=== PATIENT | female | born 1975 | race Caucasian/White ===

== ENCOUNTER 2021-01-24 17:12 | Emergency (ER) | payer MEDICAID, SELFPAY ==
[2021-01-24 17:15] VITALS: BP 127/74; PULSE 117; RESP 18; TEMP 36.7; O2SAT 98; BMI 37.4
--- NOTE | 2021-01-24 18:12 | ED_ITS ---
HPI - Female Genitourinary General Chief complaint: Urogenital-Female Stated complaint: UTI Source: patient Mode of arrival: ambulatory Limitations: no limitations History of Present Illness HPI Narrative: 45-year-old female presents with urinary symptoms requesting treatment for STI. MD elicited complaint: dysuria, UTI and vaginal discharge Pertinent past history: recurrent UTIs Onset (ago): day(s) ( For) Location of symptoms: external genitalia and vaginal Severity: moderate Severity scale (1-10): 5 Quality of pain: burning Vaginal discharge: white and thick/cheesy Vaginal bleeding: none Urinary symptoms: Dysuria Exacerbating factors: urination and intercourse Relieving factors: none Associated symptoms: denies other symptoms Treatment prior to arrival: none Sexual activity: Yes Patient : No Related Data Previous Rx's Medication Instructions Recorded fluconazole [Diflucan] 150 mg PO DAILY #1 tab 01/24/21 Allergies Allergy/AdvReac Type Severity Reaction Status Date / Time No Known Allergies Allergy Verified 01/24/21 17:16 Review of Systems Review of Systems: Constitutional: No Fever, No Chills ENT/Mouth: No sore throat Eyes: No Eye Pain, No Swelling, No Redness Cardiovascular: No Chest Pain, No SOB Respiratory: No Cough, No Sputum, No Wheezing Gastrointestinal: positive Nausea, no Vomiting, No Diarrhea, no abdominal pain Genitourinary: positive Dysuria, positive urinary frequency, no Hematuria, now Flank Pain, now hesitancy Musculoskeletal: No joint pain, No Myalgias Skin: No Skin Lesions, No rash Neuro: No Weakness, No Numbness, No Headache Psych: No Anxiety/Panic, No Depression Heme/Lymph: No Bruising, No Lymphadenopathy Endocrine: No Polyuria, No Polydipsia Yes all other systems are reviewed and are negative [facility] Past Medical History Attestation statement: The following information was validated with the patient. Source: old records reviewed Medical History No known health problems Social History Social History Advance Directives: No Advance Directives Information Provided: No Patient : No Physical Exam Vital Signs: Vital Signs: Last Vital Signs Temp 98.1 F 01/24/21 17:15 Pulse 117 H 01/24/21 17:15 Resp 18 01/24/21 17:15 BP 127/74 01/24/21 17:15 Pulse Ox 98 01/24/21 17:15 Body Mass Index 37.4 Appearance: Alert. Oriented X3. No acute distress. Eyes: Pupils equal, round and reactive to light. ENT: Pharynx normal. Neck: Normal inspection. Neck supple. CVS: Normal heart rate and rhythm. Pulses normal. Respiratory: No respiratory distress. Breath sounds normal. Abdomen: Soft and nontender. Skin: Skin warm and dry. Normal skin color. Normal skin turgor. Extremities: No lower extremity edema. Neuro: No motor deficit. No sensory deficit. Course Course Course Narrative: 45-year-old female presents with urinary symptoms. States to have white clumpy vaginal discharge, and is concerned that she could possibly have an STI. Patient politely declines pelvic exam, risk and benefits discussed with patient. I will treat for chlamydia and gonorrhea with ceftriaxone and azithromycin. I will treat for candidiasis based on her description of vaginal discharge. Urinalysis is negative for acute findings. Plan of care is to discharge home. Patient verbalized understanding of and agrees to plan. MDM - Female Genitourinary MDM Narrative Medical decision making narrative: Candidiasis Differential Diagnosis Differential diagnosis: Likely urinary tract infection, bacterial vaginosis, trichomoniasis and vaginitis Medical Records Attestation: I reviewed the patient's medical records. Lab Data Attestation: I reviewed the patient's lab results. Labs: Lab Results 01/24/21 01/24/21 Range/Units 18:17 18:17 Urine Color YELLOW Urine Appearance CLEAR Urine pH 6.0 (5.0-8.0) Ur Specific [place] 1.015 (1.005-1.025) Urine Protein TRACE (NEG-TRACE) MG/DL Urine Glucose (UA) NEG (NEG) MG/DL Urine Ketones 40 (NEG) MG/DL Urine Blood NEG (NEG) Urine Nitrite NEG (NEG) Ur Leukocyte Esterase NEG (NEG) Urine Test NEGATIVE (NEGATIVE) Discharge Plan Discharge Clinical Impression: Candidiasis Patient Disposition: Home, Self-Care Instructions: Yeast Infection (ED) Additional Instructions: you were evaluated for urinary symptoms. We treated you for chlamydia and gonorrhea with ceftriaxone and azithromycin. You do not need further treatment at this time. Please refrain from sexual activities for the next 2 weeks or until symptoms resolve. Please inform your partner that they should be treated for sexually transmitted infection. We did treat for yeast infection. Please take Diflucan 1 tablet in 3 days from now. Thank you for choosing this emergency department for evaluation. Please follow-up with primary care physician as needed. Return to the emergency department for any new, concerning, or worsening symptoms. Prescriptions: New fluconazole [Diflucan] 150 mg tablet 150 mg PO DAILY Qty: 1 RF: 0
[2021-01-24 18:31] LABS: Appearance Urine CLEAR; Color Urine YELLOW; Glucose Urine UA NEG (NEG); Leukocyte Esterase Urine NEG (NEG); Nitrite Urine NEG (NEG); Specific Gravity - Urine 1.015 (1.005-1.025); Urine Blood NEG (NEG); Urine Ketones 40 MG/DL (NEG); Urine Protein TRACE MG/DL (NEG-TRACE)
[2021-01-24 18:32] LABS: UPreg QC Valid YES; Urine Pregnancy NEGATIVE (NEGATIVE)
[2021-01-24] MEDS: Azithromycin 500 MG TABLET 1000 MG PO (19:21)
[2021-01-24] MEDS: Fluconazole 150 MG TABLET PO (19:21)
[2021-01-24] MEDS: cefTRIAXone sodium 500 MG, Lidocaine HCl 1 % MPF 1 ML IM (19:21)
== END 2021-01-24 20:20 | disposition home or self-care (01) ==
PROVIDERS: Emergency Provider Emergency Medicine
DX: B37.9 Candidiasis, unspecified (principal)
CPT/HCPCS: 81003; 81025; 96372; 99284; J0696